=== PATIENT | female | born 1970 | race Caucasian/White ===

== ENCOUNTER 2023-04-29 09:05 | Outpatient (AMB) | payer BC, SELFPAY ==
--- NOTE | 2023-04-29 09:14 | A.OFFVIS_ITS ---
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 She did injure her knee approximately 1 year ago. She twisted her knee and had acute onset of pain. She has done physical therapy which aggravated her pain. She has also tried Tylenol and anti-inflammatory medicines which gave her minimal relief. She has had cortisone injections in the past which gave her only temporary relief. She states that her right knee will give out several times per day. Allergies Penicillins Allergy (Intermediate, Verified 04/29/23 09:15) Hives Medication List - Last Reconciled 04/29/23 by Tushar Duffy MD bupropion HCl 150 mg PO QAM [facility] Surgical History (Updated 04/29/23 @ 09:17 by Luz Maria Cordero MA) No pertinent past surgical history Family History (Updated 04/29/23 @ 09:17 by Luz Maria Cordero MA) Sister Breast cancer Multiple myeloma Maternal Grandfather Diabetes Social History (Updated 04/29/23 @ 09:16 by Luz Maria Cordero MA) Household Members: Spouse Housing: House Alcohol intake: current Alcohol intake frequency: a few times a month Patient Tobacco Use Status: Never used Tobacco Current occupational status: employed 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 Const Other: Well-nourished well-developed very friendly female awake alert and oriented x3 in no acute distress Extrem Other: Bilateral lower extremity examination shows good capillary refill, no skin lesions noted, normal sensation light touch Right knee examination shows a minimal effusion, minimal crepitus with range of motion, tenderness along her medial joint line, positive Martin's test, no instability Results Reviewed Results Reviewed: X-rays of the patient's right knee show minimal diffuse joint space narrowing, no acute bony abnormalities Assessment & Plan Assessment & Plan (1) Right knee pain: Code(s): M25.561 - Pain in right knee Plan Ms. Meier presents with right knee pain and mechanical symptoms possibly due to a tear of her medial meniscus. Thus, I will send the patient for an MRI of her right knee for further evaluation. I will see her back once the MRI is completed to discuss the findings and treatment options. She will call me prior to that time should her symptoms worsen in any way. Feel free to call me at any time should questions regarding her orthopedic management arise. Thank you very much for asking me to see this very friendly patient. I spent 22 minutes in reviewing the patient's records and imaging studies, seeing the patient and documenting in the medical record. Orders: Orders XR knee RT 3V Today M25.561 - Pain in right knee Coding Level of Care Code New Pt Level 2 (78110) Diagnoses Right knee pain M25.561
== END 2023-04-29 09:40 | disposition home or self-care (01) ==
PROVIDERS: PCP Internal Medicine; Visit Provider Orthopaedic Surgery
DX: M25.561 Pain in right knee (principal)
CPT/HCPCS: 99202

== ENCOUNTER 2023-04-29 17:17 | Outpatient (REF) | payer BC, SELFPAY ==
--- NOTE | ~2023-04-29 | XR_ITS ---
EXAMINATION: XR KNEE, RIGHT CLINICAL INFORMATION: Pain. COMPARISON: None available. TECHNIQUE: AP, lateral and sunrise views of the right knee were submitted. FINDINGS: Bony alignment and mineralization are normal. The lateral, medial and patellofemoral joint space compartments are well-maintained. There is a small peripheral osteophyte arising from the superior articular surface of the patella. No fracture, dislocation or significant joint effusion is seen. There is no foreign body. XR/XR knee RT 3V IMPRESSION: 1. No fracture, dislocation or right knee joint effusion is seen. 2. There is mild osteoarthritic change of the right patellofemoral compartment.
== END 2023-04-29 17:18 | disposition home or self-care (01) ==
LOC: HO.HOSX 17:17
PROVIDERS: Visit Provider Orthopaedic Surgery
DX: M25.561 Pain in right knee (principal)
CPT/HCPCS: 73562